=== PATIENT | male | born 1950 | race Caucasian/White ===

== ENCOUNTER 2020-01-29 08:14 | Outpatient (CLI) | payer MEDICARE | END 2020-01-29 23:59 | disposition home or self-care (01) | LOC: CFH 08:14 | PROVIDERS: ATTEND Internal Medicine Cardiovascular Disease | DX: I10 Essential (primary) hypertension (principal); R07.89 Other chest pain; E78.2 Mixed hyperlipidemia | CPT/HCPCS: 78452; 93017; A9502 ==